=== PATIENT | female | born 1935 | race Caucasian/White ===

== ENCOUNTER 2016-12-15 09:59 | Outpatient (CLI) | payer OTHER ==
[2015-04-19 13:49] VITALS: BP 124/62
[2016-12-15 10:51] LABS: eGFR (African) > 60; eGFR (Non-African) > 60
== END 2016-12-15 10:00 ==
LOC: LAB 09:59
PROVIDERS: ATTEND Physician Assistant
DX: R79.89 Other specified abnormal findings of blood chemistry (principal)
CPT/HCPCS: 36415; 80053

== ENCOUNTER 2017-10-11 13:48 | Outpatient (CLI) | payer OTHER ==
[2015-04-19 13:49] VITALS: BP 124/62
[2017-10-11 14:31] LABS: eGFR (African) > 60; eGFR (Non-African) > 60
== END 2017-10-11 13:50 ==
LOC: RAD 13:48
PROVIDERS: ATTEND Family Medicine
DX: E05.90 Thyrotoxicosis, unspecified without thyrotoxic crisis or storm (principal); M81.0 Age-related osteoporosis without current pathological fracture; I10 Essential (primary) hypertension
CPT/HCPCS: 36415; 77080; 80053; 84443

== ENCOUNTER 2018-07-11 13:45 | Outpatient (CLI) | payer OTHER ==
[2015-04-19 13:49] VITALS: BP 124/62
[2018-07-11 14:31] LABS: BASOPHILS % 0.6 (0.0-1.5); EOSINOPHILS % 9.5 % (0.0-6.8); MEAN CORPUSCULAR HEMOGLOBIN 27.5 pg (28.0-34.0); MEAN CORPUSCULAR VOLUME 83.5 fl (80.0-100.0); MONOCYTES % 4.4 % (0.0-11.0); NEUTROPHILS # 5.5 # k/uL (1.4-7.7)
[2018-07-11 15:12] LABS: eGFR (Non-African) > 60
== END 2018-07-11 13:46 ==
LOC: LAB 13:45
PROVIDERS: ATTEND Family Medicine
DX: F32.1 Major depressive disorder, single episode, moderate (principal); R42 Dizziness and giddiness
CPT/HCPCS: 36415; 80053; 84443; 85025

== ENCOUNTER 2018-10-31 19:29 | Emergency (ER) | payer OTHER ==
[2018-10-31] MEDS ORDERED: 0.9 % SODIUM CHLORIDE 1,000 ML IV ONE ×2 (19:36→21:47)
[2018-10-31] MEDS ORDERED: DILTIAZEM HCL 25 MG/5 ML VIAL IVP ONE (19:50)
[2018-10-31 19:54] LABS: MEAN CORPUSCULAR HEMOGLOBIN 26.6 pg (28.0-34.0)
[2018-10-31 19:55] LABS: BASOPHILS % 0.5 (0.0-1.5); EOSINOPHILS % 1.5 % (0.0-6.8)
--- NOTE | 2018-10-31 20:01 | Diagnostic Imaging Report ---
JULIA BURDEN [facility] [address] [address] [facility] [address] [place], [place]. 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 Clear lungs without acute infiltrate or pleural effusion. Mild hyperinflation. Normal bony thorax. Impression: Hyperinflation without acute infiltrate or pleural effusion Electronically signed on Oct 31, 2018 7:56:13 PM ELECTRON BEAM PHOTO MASK TECHNICIAN by: Tad PORRAS
[2018-10-31 20:13] LABS: eGFR (Non-African) 8
--- NOTE | 2018-10-31 20:17 | ED Physician Documentation ---
General Adult - HISTORIAN Historian: patient - HPI Stated Complaint: diarrhea Chief Complaint: Nausea,Vomiting,Diarrhea Onset: days ago (3) Timing: still present Severity: mild Further Comments: yes (she started to have nausea and diarrhea sat after a [place] dinner and she states she was having dark diarrhea today and her daughter finally made her seek care. She states she has pain that she feels is from vomiting. Denies a fever although she has not checked the temp. No urine output. She has no idea what meds she is on she thinks she takes about 6 pills a day. She did at one time "take a heart pill that starts with a P but the dr told me my heart was strong and I was ok to stop the med" . She states she has no shortness of air. She does take meds for COPD. She is not "from here" but is here with daughter. No sure of last bowel movement or urine out put. She denies any abdominal pain) Last known Well Code/Unknown Code: Unknown - ROS CONST: recent illness EYES/ENT: none CVS/RESP: shortness of breath, cough. denies: chest pain GI/: vomiting, nausea, diarrhea MS/SKIN/LYMPH: denies: rash NEURO/PSYCH: denies: headache, fainting, dizziness - PAST HX Past History: COPD, A-Fib, CHF, hypertension Allergies/Adverse Reactions: Allergies Allergy/AdvReac Type Severity Reaction Status Date / Time octoxynol 9 Allergy Intermediate Rash Verified 10/31/18 20:17 iodine Allergy Mild Rash Verified 10/31/18 20:17 Home Medications: Ambulatory Orders Medication Instructions Recorded Furosemide [Lasix] 20 mg PO DAILY tablet 04/19/15 - SOCIAL HX Smoking History: non-smoker Alcohol Use: none Drug Use: none - FAMILY HX Family History: No - VITAL SIGNS Vital Signs: Vital Signs Temp Pulse Resp BP Pulse Ox 124/62 04/19/15 13:48 - REVIEWED ASSESSMENTS Nursing Assessment Reviewed: Yes Vitals Reviewed: Yes Progress - Progress Progress: 2013: reports the feeling in her chest/epigastric area is improved DG 2044: discussed transfer of care with Sander at [facility] DG 2049: Dr Vivar accepting DG ED Results Lab/Radiology - Lab Results Lab Results: Lab Results 10/31/18 10/31/18 10/31/18 19:38 19:38 19:38 WBC 13.50 K/ul H K/ul (4.00-12.00) RBC 5.76 M/ul H M/ul (3.90-5.20) Hgb 15.3 g/dL g/dL (12.0-16.0) Hct 46.8 % H % (34.5-46.5) MCV 81.0 fl fl (80.0-100.0) MCH 26.6 pg L pg (28.0-34.0) MCHC 32.7 g/dL g/dL (30.0-36.0) RDW 12.5 % % (11.3-14.3) Plt Count 300 K/mm3 K/mm3 (130-400) Neut % (Auto) 66.7 % % (39.0-79.0) Lymph % (Auto) 21.3 % % (16.0-50.0) [place] % (Auto) 10.0 % % (0.0-11.0) Eos % (Auto) 1.5 % % (0.0-6.8) Baso % (Auto) 0.5 (0.0-1.5) Neut # (Auto) 9.0 # k/uL H # k/uL (1.4-7.7) Lymph # (Auto) 2.9 # k/uL # k/uL (0.6-4.0) [place] # (Auto) 1.4 # k/uL H # k/uL (0.0-0.9) Eos # (Auto) 0.2 # k/uL # k/uL (0.0-0.6) Baso # (Auto) 0.1 # k/uL # k/uL (0.0-0.5) Sodium 132 mmol/L L mmol/L (136-145) Potassium 3.5 mmol/L mmol/L (3.5-5.1) Chloride 94 mmol/L L mmol/L (98-107) Carbon Dioxide 21 mmol/L L mmol/L (22-30) BUN 37 mg/dL H mg/dL (7-17) Creatinine 5.20 mg/dL H mg/dL (0.52-1.04) Est GFR ( Amer) 10 L (60 - ) Est GFR (Non-Af Amer) 8 L (60 - ) Glucose 119 mg/dL H mg/dL (74-106) Calcium 8.6 mg/dL mg/dL (8.4-10.2) Total Bilirubin 0.6 mg/dL mg/dL (0.2-1.3) AST 35 U/L U/L (15-46) ALT 18 U/L U/L (13-69) Alkaline Phosphatase 68 U/L U/L (38-126) Troponin I < 0.03 ng/mL L ng/mL (0.03-0.06) NT-Pro-B Natriuret Pep 534.4 pg/mL H pg/mL (15.0-450.0) Total Protein 7.6 g/dL g/dL (6.3-8.2) Albumin 4.7 g/dL g/dL (3.5-5.0) - Radiology Radiology Impressions: Chest AP portable at 1939 hours of October 31, 2018 Clinical history: Dyspnea, wheezing and chest pain Normal heart shadow and mediastinum. Clear lungs without acute infiltrate or pleural effusion. Mild hyperinflation. Normal bony thorax. Impression: Hyperinflation without acute infiltrate or pleural effusion Electronically signed on Oct 31, 2018 7:56:13 PM SECONDARY ART TEACHER by: Tad Martinez - Orders Orders: ED Orders Category Date Time Status IV Started NOW Care 10/31/18 19:40 Active CHEST 1VIEW [RAD] Stat Exams 10/31/18 Completed BNP [NT-proBNP] Stat Lab 10/31/18 19:38 Completed CBC/PLATELET/DIFF Routine Lab 10/31/18 19:38 Completed CMP Routine Lab 10/31/18 19:38 Completed TROPONIN I (cTnI) Stat Lab 10/31/18 19:38 Completed UA W/MICRO IF INDICATED Routine Lab 10/31/18 19:39 Ordered 0.9 % Sodium Chloride [Normal Saline] 1,000 ml Med 10/31/18 19:36 Active IV NOW Diltiazem HCl [Cardizem] Med 10/31/18 19:50 Discontinued 15 mg IVP STAT ONE General Adult Physical Exam - PHYSICAL EXAM GENERAL APPEARANCE: no distress EENT: eye inspection normal, dry mucous membranes NECK: normal inspection RESPIRATORY: no resp distress, chest non-tender, wheezes CVS: irregularly irregular rhy ABDOMEN: soft, normal bowel sounds, no distension, non-tender BACK: normal inspection, no CVA tenderness SKIN: warm/dry, normal color EXTREMITIES: non-tender, normal range of motion, no edema NEURO: oriented X3, CN's nml as tested, motor nml, sensation nml, mood/affect nml Discharge Clincal Impression: Renal failure Qualifiers: Renal failure chronicity: acute Acute renal failure type: unspecified Qualified Code(s): N17.9 - Acute kidney failure, unspecified Referrals: Tracy Ventura MD [Primary Care Provider] - 2 Days Comments: Dr Vivar accepting [facility] DG Condition: Fair Disposition: 02 XFER SHT-TRM HOSP Decision to Admit: NO Date of Decison to Admit: 10/31/18 Decision Time: 20:50
[2018-10-31 21:58] VITALS: BP 96/47
== END 2018-10-31 21:45 | disposition short-term general hospital (02) ==
LOC: ED 19:29
DX: N17.9 Acute kidney failure, unspecified (principal)
CPT/HCPCS: 36415; 71045; 80053; 83605; 83880; 84484; 85025; 87040; 93005; 96374; 99285; J3490; J7030; S1016